=== PATIENT | male | born 1955 | race Caucasian/White ===

== ENCOUNTER 2024-04-04 11:19 | Emergency (ER) | payer OTHER ==
[~2024-04-04] VITALS: Ht 172.7 cm; Wt 64.9 kg
[2024-04-04 11:20] VITALS: BP_SYST 158; PULSE 93; RESP 19; TEMP 97.7; O2SAT 99
[2024-04-04 11:52] LABS: BILIRUBIN,URINE NEGATIVE (NEGATIVE); BLOOD, URINE 3+ (NEGATIVE); CLARITY/URINE CLEAR (CLEAR); COLOR,URINE YELLOW (YELLOW); GLUCOSE,URINE NEGATIVE (NEGATIVE); KETONES,URINE NEGATIVE (NEGATIVE); LEUKOCYTE ESTERASE ,URINE NEGATIVE (NEGATIVE); NITRITE, URINE NEGATIVE (NEGATIVE); PROTEIN URINE NEGATIVE (NEGATIVE); UROBILINOGEN,URINE 0.2 (0.2-1.0)
[2024-04-04 12:05] LABS: BASOPHILS % (AUTO) 0.6 % (0.0-2.0); EOSINOPHILS % (AUTO) 0.3 % (0.0-4.0); HEMATOCRIT 37.6 % (36-54); HEMOGLOBIN 12.8 g/dL (14.0-18.0); LYMPHOCYTES # (AUTO) 1.2 K/uL (1.0-5.5); LYMPHOCYTES % (AUTO) 19.3 % (20.5-51.5); MEAN CORPUSCULAR HEMOGLOBIN 32 pg (27-31); MEAN CORPUSCULAR HGB CONC 34 % (32-36); MEAN CORPUSCULAR VOLUME 94 fL (79.0-98.0); MONOCYTES # (AUTO) 0.6 K/uL (0.0-1.0); MONOCYTES % (AUTO) 10.6 % (1.7-9.3); NEUTROPHILS # (AUTO) 4.2 K/uL (1.8-7.7); NEUTROPHILS % (AUTO) 69.2 % (40.0-70.0); PLATELET COUNT (AUTO) 185 K/uL (130-430); RED BLOOD CELL COUNT(AUTO) 4.02 MIL/uL (4.2-6.2); RED CELL DISTRIBUTION WIDTH 12.7 % (9.0-15.0)
[2024-04-04 12:09] LABS: BACTERIA,URINE None Seen /HPF (None Seen); RBC,URINE 20-50 /HPF (0-3); WBC,URINE NONE SEEN /HPF (0-3)
[2024-04-04 12:30] LABS: CALCIUM 9.3 mg/dL (8.4-11.0); CREATININE 0.9 mg/dL (0.55-1.30); POTASSIUM 4.7 mmol/L (3.5-5.1)
[2024-04-04 13:06] VITALS: BP_SYST 158; PULSE 93; RESP 19; TEMP 97.7; O2SAT 99
[2024-04-05] MEDS ORDERED: NITR-85 PO (16:56)
== END 2024-04-04 13:05 | disposition home or self-care (01) ==
LOC: SED 11:19
DX: R33.8 Other retention of urine (principal); R14.0 Abdominal distension (gaseous); R10.30 Lower abdominal pain, unspecified
CPT/HCPCS: 36415; 80048; 81000; 81001; 81015; 83605; 85025; 99283

== ENCOUNTER 2024-04-05 13:33 | Emergency (ER) | payer OTHER ==
[~2024-04-05] VITALS: Ht 172.7 cm; Wt 64.9 kg
[2024-04-05 13:59] VITALS: BP_SYST 126; PULSE 65; RESP 12; TEMP 97.9; O2SAT 100
[2024-04-05 14:50] LABS: BILIRUBIN,URINE NEGATIVE (NEGATIVE); BLOOD, URINE 3+ (NEGATIVE); COLOR,URINE RED (YELLOW); GLUCOSE,URINE NEGATIVE (NEGATIVE); KETONES,URINE NEGATIVE (NEGATIVE); NITRITE, URINE NEGATIVE (NEGATIVE); PH,URINE 6.5 (5.0-8.0); PROTEIN URINE 2+ (NEGATIVE); UROBILINOGEN,URINE 0.2 (0.2-1.0)
[2024-04-05 15:03] LABS: BACTERIA,URINE FEW /HPF (None Seen); CLARITY/URINE CLOUDY (CLEAR); LEUKOCYTE ESTERASE ,URINE NEGATIVE (NEGATIVE); RBC,URINE >100 /HPF (0-3); WBC,URINE 0-3 /HPF (0-3)
[2024-04-05 15:04] LABS: MUCUS,URINE 1+ /LPF (None Seen)
[2024-04-05 16:14] LABS: BASOPHILS % (AUTO) 0.4 % (0.0-2.0); EOSINOPHILS # (AUTO) 0.2 K/uL (0.0-0.4); EOSINOPHILS % (AUTO) 1.9 % (0.0-4.0); HEMATOCRIT 37.3 % (36-54); HEMOGLOBIN 12.9 g/dL (14.0-18.0); LYMPHOCYTES # (AUTO) 2.7 K/uL (1.0-5.5); LYMPHOCYTES % (AUTO) 31.8 % (20.5-51.5); MEAN CORPUSCULAR HEMOGLOBIN 33 pg (27-31); MEAN CORPUSCULAR HGB CONC 35 % (32-36); MEAN CORPUSCULAR VOLUME 95 fL (79.0-98.0); MONOCYTES # (AUTO) 0.9 K/uL (0.0-1.0); MONOCYTES % (AUTO) 10.5 % (1.7-9.3); NEUTROPHILS # (AUTO) 4.7 K/uL (1.8-7.7); NEUTROPHILS % (AUTO) 55.4 % (40.0-70.0); PLATELET COUNT (AUTO) 177 K/uL (130-430); RED BLOOD CELL COUNT(AUTO) 3.94 MIL/uL (4.2-6.2); RED CELL DISTRIBUTION WIDTH 13.3 % (9.0-15.0); WHITE BLOOD COUNT (AUTO) 8.4 K/uL (4.8-10.8)
[2024-04-05] MEDS ORDERED: NITR-85 PO (16:56)
[2024-04-05 17:11] LABS: ALBUMIN 3.9 g/dL (3.4-4.8); BILIRUBIN,DIRECT 0.2 mg/dL (0.0-0.3); CALCIUM 8.5 mg/dL (8.4-11.0); CREATININE 0.87 mg/dL (0.55-1.30); POTASSIUM 4.2 mmol/L (3.5-5.1); TOTAL BILIRUBIN 0.5 mg/dL (0.0-1.0); TOTAL PROTEIN, SERUM 7.4 g/dL (6.4-8.3)
[2024-04-05 17:15] VITALS: BP_SYST 119; PULSE 69; O2SAT 99
[2024-04-05] MEDS: NITROFURANTOIN MONOHYD/M-CRYST 100 MG CAPSULE (MacroBID) PO ONE (17:16)
== END 2024-04-05 17:15 | disposition home or self-care (01) ==
LOC: SED 13:33
DX: N40.0 Benign prostatic hyperplasia without lower urinary tract symptoms (principal); R33.9 Retention of urine, unspecified; R31.9 Hematuria, unspecified; Z79.899 Other long term (current) drug therapy
CPT/HCPCS: 36415; 80048; 80076; 81000; 81001; 81015; 85025; 99283

== ENCOUNTER 2024-04-20 02:15 | Emergency (ER) | payer OTHER ==
[~2024-04-20] VITALS: Ht 172.7 cm; Wt 64.4 kg
[~2024-04-20 02:15] MED LIST: NITR-85 PO
[2024-04-20 02:29] VITALS: BP_SYST 128; PULSE 81; RESP 18; TEMP 98.1; O2SAT 96
[2024-04-20 03:23] VITALS: BP_SYST 128; PULSE 81; RESP 18; TEMP 98.1; O2SAT 96
== END 2024-04-20 03:23 | disposition home or self-care (01) ==
LOC: SED 02:15
DX: R33.8 Other retention of urine (principal); Z79.899 Other long term (current) drug therapy
CPT/HCPCS: 99283

== ENCOUNTER 2024-04-27 06:12 | Emergency (ER) | payer OTHER ==
[~2024-04-27] VITALS: Ht 172.7 cm; Wt 63.0 kg
[2024-04-27 06:20] VITALS: BP_SYST 120; PULSE 68; RESP 18; TEMP 98.5; O2SAT 98
[2024-04-27 07:24] VITALS: BP_SYST 120; PULSE 68; RESP 18; TEMP 98.5; O2SAT 98
== END 2024-04-27 07:24 | disposition home or self-care (01) ==
LOC: SED 06:12
DX: N40.1 Benign prostatic hyperplasia with lower urinary tract symptoms (principal); R33.8 Other retention of urine; Z79.899 Other long term (current) drug therapy
CPT/HCPCS: 99283